=== PATIENT | male | born 1985 | race Caucasian/White ===

== ENCOUNTER 2024-11-04 09:07 | Emergency (ER) | payer OTHER ==
[~2024-11-04] VITALS: Ht 188 cm; Wt 96.9 kg
[2024-11-04] MEDS ORDERED: ONDA-282 PO (13:32)
[2024-11-04 13:41] VITALS: BP 148/81; TEMP 96.6; O2SAT 99
== END 2024-11-04 13:45 | disposition home or self-care (01) ==
LOC: M ED 09:07
DX: S06.0X0A Concussion without loss of consciousness, initial encounter (principal); S00.01XA Abrasion of scalp, initial encounter; Y92.9 Unspecified place or not applicable; Y93.9 Activity, unspecified; Y99.0 Civilian activity done for income or pay; W00.0XXA Fall on same level due to ice and snow, initial encounter; Z79.899 Other long term (current) drug therapy